=== PATIENT | female | born 1995 | race Two or more races ===

== ENCOUNTER 2024-11-14 11:35 | Emergency (ER) | payer OTHER ==
[~2024-11-14] VITALS: Ht 149.9 cm; Wt 65.8 kg
== END 2024-11-14 18:53 | disposition home or self-care (01) ==
LOC: ER 11:37
DX: S82.845A Nondisplaced bimalleolar fracture of left lower leg, initial encounter for closed fracture (principal); V00.831A Fall from motorized mobility scooter, initial encounter; Y93.I9 Activity, other involving external motion; Y92.413 State road as the place of occurrence of the external cause